=== PATIENT | male | born 1935 | race Caucasian/White ===

== ENCOUNTER 2017-04-22 04:45 | Inpatient (IN) | payer OTHER ==
--- NOTE | ~2017-04-22 | HP ---
History And Physical [address] [place]. [address] NAME: BRIAN STANTON : 37 STATUS : ADM IN [facility] WITH [facility]#: [id number] AGE: 81 ADM/REG DATE : 04/22/17 MR#: [id number] REPORT SERV DATE: 04/22/17 DICTATED BY: MAURA BECKHAM DATE: 04/22/17 REPORT STATUS : Draft TRANSCRIBED BY: MODL DATE: 04/22/17 DATE OF ADMISSION: 04/22/2017 CHIEF COMPLAINT: An 81-year-old male presenting with bright red blood per rectum. HISTORY OF PRESENTING ILLNESS: The patient's history was obtained through careful interview with the patient, coupled with review of [facility] and [employer] [facility] medical records. The patient on the afternoon of admission began to have bright red blood per rectum, passing clots, and had a total of four large bloody bowel movements this afternoon. He felt extremely weak. He describes lower quadrant abdominal discomfort, mid abdominal "discomfort", cramping quality, 3 to 4/10 severity. No lightheadedness. No nausea, vomiting. No shortness of breath. No chest pain today. The patient does have occasional chronic angina, chest pain brought on by exertion. REVIEW OF SYSTEMS: Otherwise, a 14-point review of systems was obtained and was negative. PAST MEDICAL HISTORY: 1. Diverticulitis. 2. Nephrolithiasis. 3. GI bleed. 4. Coronary artery disease, status post stent placement under the care of Dr. Gutierres, 10/2015. 5. Hypertension. 6. Cholelithiasis. PAST SURGICAL HISTORY: Multiple lipomas of the shoulder and back. ALLERGIES: IV CONTRAST. SOCIAL HISTORY: The patient quit tobacco. No alcohol abuse. He is . in poor health, on dialysis. He has two children, one child in [place], one in [place]. 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 FAMILY HISTORY: Mother with CABG. CURRENT MEDICATIONS: Include Brilinta 90 mg p.o. b.i.d., omega-3 fatty acids, aspirin 81 mg daily, Lipitor 80 mg daily, Coreg 6.25 mg p.o. b.i.d., vitamin B12, isosorbide mononitrate 30 mg daily, Cozaar 100 mg p.o. daily. PHYSICAL EXAMINATION: History And Physical [address] [address] NAME: BRIAN STANTON : 37 STATUS : ADM IN [facility]ED WITH [facility]#: [id number] AGE: 81 ADM/REG DATE : 04/22/17 MR#: [id number] REPORT SERV DATE: 04/22/17 DICTATED BY: MAURA BECKHAM DATE: 04/22/17 REPORT STATUS : Draft TRANSCRIBED BY: MODL DATE: 04/22/17 VITAL SIGNS: Temperature 98.1, pulse 96, blood pressure 120/76, respiratory rate 20, O2 saturation 97% on room air. GENERAL: A pleasant, cooperative male. No evidence of acute distress. HEENT: Pupils equal, round, and reactive to light. The patient does seem to have conjunctival pallor, but no scleral icterus. Nares are patent. Oropharynx is clear of obstruction. No intraoral lesions. Moist mucous membranes. NECK: Trachea midline. No thyromegaly. LYMPH: No cervical lymphadenopathy. No supraclavicular lymphadenopathy. RESPIRATORY: Clear to auscultation at bases. No wheezes, rales, or rhonchi. Normal respiratory effort. CARDIOVASCULAR: Regular rate and rhythm. No murmurs, rubs, or gallops. No extremity edema is appreciated. ABDOMEN: Soft, nontender, nondistended. Normal bowel sounds auscultated throughout. No hepatosplenomegaly. DERMATOLOGICAL: Warm and dry. EXTREMITIES: Peripheral pallor. No cyanosis. PSYCHIATRIC: Normal affect. Good mood. Alert and oriented x3. LABORATORY DATA: White blood cell count 10.8, hemoglobin 11, hematocrit 34, platelets 228. Sodium 142, potassium 4.4, chloride 109, bicarb 26, BUN 26, creatinine 1.1, glucose 178, MCV 100.9. Troponin negative. ASSESSMENT AND PLAN: 1. Lower gastrointestinal bleed. 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 2. Coronary artery disease with chronic stable angina. Last stent was placed in 10/2015. Holding Brilinta and aspirin secondary to bleeding. 3. Macrocytic anemia and check studies. KPL/MODL Maura Beckham M.D. / [id number] CC: MD Santos Logn M.D.
--- NOTE | ~2017-04-22 | DS ---
Discharge Summary [facility] [address] [place]. [address] NAME: BRIAN STANTON : 37 STATUS : ADM IN [facility]#: [id number] AGE: 81 ADM/REG DATE : 04/22/17 MR#: [id number] REPORT SERV DATE: 04/23/17 DICTATED BY: WHIT NO DATE: 04/23/17 REPORT STATUS : Draft TRANSCRIBED BY: MODL DATE: 04/23/17 ADMISSION DATE: 04/22/2017 DISCHARGE DATE: 04/23/2017 FINAL HOSPITAL DIAGNOSES: 1. GI bleed resolved. 2. History of coronary disease, status post stent placement. 3. Hypertension. CONSULTATIONS: To GI. PROCEDURES: GI bleeding scan done on 04/22/2017, showing no evidence of acute GI bleed at this time. CURRENT PHYSICAL FINDINGS AND HISTORY OF PRESENT ILLNESS: Please see initial dictated H and P by Dr. Ureña. In brief, the patient is an 81-year-old male with above medical history who presented on the evening of 04/22/2017, with complaint of three episodes of bright red blood per rectum. Had a remote history of GI bleed in the past. Associated symptoms were some dizzy, weakness, no syncope, no chest pain. PHYSICAL EXAMINATION: VITAL SIGNS: Vital signs at time of admission noted a BP 120/76, he has been afebrile through his hospital stay. Average heart rate has been 70s to 90s. LAB WORK: BMP was unremarkable. Ferritin was 16. Troponin was negative x2. Initial hemoglobin was 11. Subsequent hemoglobins were 9.4 x2 on 04/22/2017, 8.7 and 9.6 on 04/23/2017. HOSPITAL COURSE: The patient was admitted with complaint of GI bleed. His aspirin and Plavix were held. IV fluids were given. Home blood pressure medicines were adjusted appropriately. The patient declined colonoscopy. GI recommended bleeding scan with negative results as noted above. Although the patient had several bowel movements with blood prior to admission, he has had no further bowel movements for the past 24 hours. The patient has been ambulatory without any difficulties or otherwise complaints. GI has seen the patient and agreed with discharge. The patient is very determined to discharge today. He adamantly declines a colonoscopy, mostly on the standpoint he would prefer not to have one and his bleeding has stopped. He is very insistent on discharge today as his is a dialysis patient and he needs to be home to care for and transport her to dialysis. He is as mentioned again asymptomatic. Bleeding has stopped. This seems reasonable. DISPOSITION: He will be discharge home. MEDICATIONS: Lipitor 80, Coreg 6.25 b.i.d., vitamin B12 1000, vitamin D 2000, Imdur 60, Cozaar 50, fish oil 1000, nitroglycerin 0.4, Detrol 2 mg b.i.d. He will hold his aspirin and Plavix for seven days prior, restarted per GI's recommendation. Discharge Summary [place] [id number] [facility] [place]. [address] NAME: BRIAN STANTON : 37 STATUS : ADM IN [facility]#: [id number] AGE: 81 ADM/REG DATE : 04/22/17 MR#: [id number] REPORT SERV DATE: 04/23/17 DICTATED BY: WHIT NO DATE: 04/23/17 REPORT STATUS : Draft TRANSCRIBED BY: LIUDMILA DATE: 04/23/17 His stent was over a year ago and the patient is comfortable with that recommendation, understanding risks and benefits. Post hospital followup with his PCP will be arranged. Return for any bleeding. DICTATED BY: Denis Mora/LIUDMILA Whit No M.D. / [id number] CC: Denis Mora M.D.
--- NOTE | ~2017-04-22 | DS ---
Discharge Summary [place] [id number] [facility] [place]. [address] NAME: BRIAN STANTON : 37 STATUS : ADM IN PAT#: [id number] AGE: 81 ADM/REG DATE : 04/22/17 MR#: [id number] REPORT SERV DATE: 04/23/17 DICTATED BY: WHIT NO DATE: 04/23/17 REPORT STATUS : Draft TRANSCRIBED BY: MODL DATE: 04/23/17 ADMISSION DATE: 04/22/2017 DISCHARGE DATE: ADDENDUM: Rechecked blood pressure, the patient was approximately 90/60. The patient is asymptomatic and is still requesting discharge. We discussed his medications. He is going to hold his Cozaar and Detrol at the current time. He is going to restart either at his 7- to 10-day followup with his PCP or if his systolics climb above 110 on his home blood pressure cuff. Should his blood pressures remain low or he become more symptomatic, he will schedule a sooner appointment with his PCP and hold his Imdur. He will return for any bleeding. He will take his aspirin, but hold his Plavix per GI recommendations for the next week. He voiced understanding of these instructions and again is still requesting to discharge. DICTATED BY: Whit No M.D. TLF/LIUDMILA Whit No M.D. / [id number] CC: Denis Mora M.D.
--- NOTE | ~2017-04-22 | CN ---
Consultation Report [facility] [address] [place]. [address] NAME: BRIAN STANTON : 37 STATUS : DIS IN PAT#: [id number] AGE: 81 ADM/REG DATE : 04/22/17 MR#: [id number] REPORT SERV DATE: 04/27/17 DICTATED BY: SHIRAZ PANDEY DATE: 04/26/17 REPORT STATUS : Draft TRANSCRIBED BY: MODL DATE: 04/26/17 CONSULTATION DATE OF CONSULTATION: 04/22/2017 DICTATED BY: Asia Flores, Nurse Practitioner dictating for Dr. Shiraz Pandey. REASON FOR CONSULTATION: Lower GI bleed. HISTORY OF PRESENT ILLNESS: This 81-year-old white male was last seen February 2008, for screening colonoscopy remarkable for internal hemorrhoids, left-sided diverticulosis, large lipoma in the ascending colon, and removal of benign polyp. The patient presents with complaints of bright red blood per rectum following eating a hot dog and pickle relish that began yesterday. He reports he took Levaquin and Flagyl in November of this year for diverticulitis with resolution of symptoms. He reports a history of similar bleeding in the past. He has a history of [place] October 2015, status post stent placement x2 and on Plavix and low-dose aspirin. He had some abdominal cramping initially prior to bleeding. He denies any nausea, vomiting, fever, or chills. He had a BM this morning that was brown and formed with only scant blood noted. PAST MEDICAL HISTORY: 1. History of GI bleed. 2. Diverticulitis. 3. Nephrolithiasis. 4. CAD status post stents x2, October 2015. 5. Hypertension. 6. Cholelithiasis. PAST SURGICAL HISTORY: 1. Tonsillectomy. 2. Excision of lipomas from the back and chest. 3. Cardiac stents x2. ALLERGIES: IV CONTRAST. HOME MEDICATIONS: Include aspirin 81 mg daily, Lipitor, Coreg, vitamin D, Plavix 75 mg daily, vitamin B12 sublingual, Imdur, Cozaar, Citrucel, fish oil, and Nitrostat. SOCIAL HISTORY: The patient is . His is on dialysis and disabled. 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 He denies alcohol use, and was a former smoker, but no longer smokes tobacco. FAMILY HISTORY: Mother, coronary artery disease. No GI malignancies. Consultation Report [facility] [address] [place]. [address] NAME: BRIAN STANTON : 37 STATUS : DIS IN PAT#: [id number] AGE: 81 ADM/REG DATE : 04/22/17 MR#: [id number] REPORT SERV DATE: 04/27/17 DICTATED BY: SHIRAZ PANDEY DATE: 04/26/17 REPORT STATUS : Draft TRANSCRIBED BY: MODL DATE: 04/26/17 REVIEW OF SYSTEMS: Otherwise unremarkable for constitutional, endocrine, neurologic, psychiatric, ocular, ENT, pulmonary, cardiovascular, GI, , or rheumatologic symptoms except for as noted above. PHYSICAL EXAMINATION: VITAL SIGNS: Temp 98.1, pulse 96, respirations 20, BP 120/76. GENERAL: Alert and oriented x3. No acute distress. HEENT: Grossly within normal limits. CHEST: Clear to auscultation bilaterally. CARDIOVASCULAR: Regular rate and rhythm without murmur noted. ABDOMEN: Soft, nondistended, nontender, active bowel sounds, no masses or hepatosplenomegaly noted. EXTREMITIES: Without edema. LABORATORY DATA: WBC 10.8, hemoglobin 11.0 down from 12.7 in November 2015, INR 1.2, potassium 4.4, BUN mildly elevated at 26, creatinine normal at 1.11, glucose 178 and high, magnesium normal at 1.7, troponin negative. IMPRESSION: 1. Lower gastrointestinal bleed most consistent with diverticular bleed; in the setting of aspirin and Plavix, it appears to be resolving. 2. Anemia with hemoglobin of 11.0. PLAN: The patient is refusing colonoscopy. We will send for nuclear medicine bleeding scan to evaluate for any active bleeding. /MODL Shiraz Pandey M.D. / [id number] CC: Denis Mora M.D. Robert Berglund, M.D.
[2017-04-22 03:45] LABS: BASOPHILS 0.2 %; BASOPHILS ABSOLUTE 0.02 10/3/uL (0.0-0.16); EOSINOPHILS 1.9 %; EOSINOPHILS ABSOLUTE 0.21 10/3/uL (0.0-0.53); ER CBC TAT 0 Hrs 00 Mins; IMMATURE GRANULOCYTES 0.2 %; IMMATURE GRANULOCYTES ABSOLUTE 0.02 10/3/uL (0.0-0.11); LYMPHOCYTES 15.8 %; LYMPHOCYTES ABSOLUTE 1.71 10/3/uL (0.67-4.30); MEAN CORPUS HGB CONC 32.6 g/dL (32.0-36.0); MEAN CORPUSCULAR HEMOGLOB 32.9 pg (26.0-34.0); MEAN CORPUSCULAR VOLUME 100.9 fL (80-100); MEAN PLATELET VOLUME 10.4 fL (9.2-13.0); MONOCYTES 4.7 %; MONOCYTES ABSOLUTE 0.51 10/3/uL (0.21-1.20); NEUTROPHILS 77.2 %; NEUTROPHILS ABSOLUTE 8.32 10/3/uL (2.02-8.40); NUCLEATED RED BLOOD CELLS 0.3 /100WBC (0-0); PLATELET COUNT 228 10/3/uL (150-400); RBC DISTRIBUTION WIDTH 13.4 % (12.0-16.0); RED CELL COUNT 3.34 10/6/uL (4.7-6.1); WHITE BLOOD CELLS 10.8 10/3/uL (4.5-10.5)
[2017-04-22 03:50] LABS: HEMATOCRIT 33.7 % (40.0-51.0); MANUAL DIFF NO %
[2017-04-22 03:58] LABS: INTERNATIONAL NORMAL RATI 1.2 UNITS (-); PARTIAL THROMBO TIME 30.3 SEC (22.5-37.2)
[2017-04-22 04:08] LABS: CALCIUM, SERUM 8.8 MG/DL (8.5-10.4); CHEST PAIN PROFILE TAT 0 Hrs 00 Mins; CHLORIDE, SERUM 109 MMOL/L (96-112); CO2 (CARBON DIOXIDE) 26 MMOL/L (24-34); CREATININE 1.11 MG/DL (0.70-1.30); GFR AFRICAN AMERICAN 72 ML/MIN (>=60); GFR NON AFRICAN AMERICAN 62 ML/MIN (>=60); POTASSIUM, SERUM 4.4 MMOL/L (3.5-5.3); SODIUM, SERUM 142 MMOL/L (135-148); TROPONIN I <0.02 NG/ML (<0.05)
[2017-04-22 04:10] LABS: BUN (BLOOD UREA NITROGEN) 26 MG/DL (6-23); GLUCOSE, SERUM 178 MG/DL (60-99)
[~2017-04-22 04:45] MED LIST: ASAB PO; BRILINTA90 MG PO; CITRUCELSF; COREG3 PO; COREG6 PO; COZ50 PO; COZAAR100 MG PO; FISH-EPA1000 MG PO; FLAGYL250 MG PO; IMDUR30 PO; LEVAQUIN5T PO; LIPITOR80 MG PO; NITROSTAT0.4 MG SL; PLAVIX PO; VITAMIN B-121000 MC1 SL; VITAMIN D2000 UNIT PO
[2017-04-22 15:02] LABS: BASOPHILS 0.2 %; BASOPHILS ABSOLUTE 0.02 10/3/uL (0.0-0.16); EOSINOPHILS 2.3 %; EOSINOPHILS ABSOLUTE 0.21 10/3/uL (0.0-0.53); HEMATOCRIT 28.3 % (40.0-51.0); HEMOGLOBIN 9.4 g/dL (13.6-17.8); IMMATURE GRANULOCYTES 0.3 %; IMMATURE GRANULOCYTES ABSOLUTE 0.03 10/3/uL (0.0-0.11); LYMPHOCYTES ABSOLUTE 2.46 10/3/uL (0.67-4.30); MANUAL DIFF NO %; MEAN CORPUS HGB CONC 33.2 g/dL (32.0-36.0); MEAN CORPUSCULAR HEMOGLOB 34.1 pg (26.0-34.0); MEAN CORPUSCULAR VOLUME 102.5 fL (80-100); MEAN PLATELET VOLUME 10.1 fL (9.2-13.0); MONOCYTES 6.9 %; MONOCYTES ABSOLUTE 0.63 10/3/uL (0.21-1.20); NEUTROPHILS 63.3 %; NEUTROPHILS ABSOLUTE 5.77 10/3/uL (2.02-8.40); PLATELET COUNT 194 10/3/uL (150-400); RBC DISTRIBUTION WIDTH 13.6 % (12.0-16.0); RED CELL COUNT 2.76 10/6/uL (4.7-6.1); WHITE BLOOD CELLS 9.1 10/3/uL (4.5-10.5)
[2017-04-22 15:50] LABS: FERRITIN 16 NG/ML (26-388); FOLATE 30.5 NG/ML (>5.2); IRON BINDING CAPACITY 303 MCG/DL (250-450); IRON, SERUM 55 MCG/DL (35-150); PHOSPHORUS, SERUM 1.9 MG/DL (2.5-4.5); TROPONIN I <0.02 NG/ML (<0.05)
[2017-04-22] MEDS ORDERED: ASAB PO (17:34)
[2017-04-22] MEDS ORDERED: LIPITOR80 MG PO (17:34)
[2017-04-22] MEDS ORDERED: COREG6 PO (17:35)
[2017-04-22] MEDS ORDERED: COZ50 PO (17:35)
[2017-04-22] MEDS ORDERED: PLAVIX PO (17:35)
[2017-04-22] MEDS ORDERED: VITAMIN D2000 UNIT PO (17:35)
[2017-04-22] MEDS ORDERED: NITROSTAT0.4 MG SL (17:35)
[2017-04-22] MEDS ORDERED: IMDUR60 PO (17:35)
[2017-04-22] MEDS ORDERED: FISH-EPA1000 MG PO (17:36)
[2017-04-22] MEDS ORDERED: DETROL2 PO (17:36)
[2017-04-22] MEDS ORDERED: VITAMIN B-121000 MC1 SL (17:37)
[2017-04-22 21:27] LABS: HEMOGLOBIN 9.4 g/dL (13.6-17.8)
[2017-04-23 05:07] LABS: BASOPHILS 0.2 %; BASOPHILS ABSOLUTE 0.02 10/3/uL (0.0-0.16); EOSINOPHILS 3.4 %; EOSINOPHILS ABSOLUTE 0.28 10/3/uL (0.0-0.53); HEMATOCRIT 26.2 % (40.0-51.0); HEMOGLOBIN 8.7 g/dL (13.6-17.8); IMMATURE GRANULOCYTES 0.2 %; IMMATURE GRANULOCYTES ABSOLUTE 0.02 10/3/uL (0.0-0.11); LYMPHOCYTES 30.5 %; LYMPHOCYTES ABSOLUTE 2.51 10/3/uL (0.67-4.30); MEAN CORPUS HGB CONC 33.2 g/dL (32.0-36.0); MEAN CORPUSCULAR HEMOGLOB 33.6 pg (26.0-34.0); MEAN CORPUSCULAR VOLUME 101.2 fL (80-100); MEAN PLATELET VOLUME 9.7 fL (9.2-13.0); MONOCYTES ABSOLUTE 0.82 10/3/uL (0.21-1.20); NEUTROPHILS 55.7 %; NEUTROPHILS ABSOLUTE 4.57 10/3/uL (2.02-8.40); PLATELET COUNT 186 10/3/uL (150-400); RBC DISTRIBUTION WIDTH 13.6 % (12.0-16.0); RED CELL COUNT 2.59 10/6/uL (4.7-6.1); WHITE BLOOD CELLS 8.2 10/3/uL (4.5-10.5)
[2017-04-23 05:08] LABS: MANUAL DIFF NO %
[2017-04-23 05:28] LABS: CALCIUM, SERUM 8.5 MG/DL (8.5-10.4); CHLORIDE, SERUM 110 MMOL/L (96-112); CO2 (CARBON DIOXIDE) 27 MMOL/L (24-34); CREATININE 0.81 MG/DL (0.70-1.30); GFR AFRICAN AMERICAN 97 ML/MIN (>=60); GFR NON AFRICAN AMERICAN 84 ML/MIN (>=60); POTASSIUM, SERUM 4.5 MMOL/L (3.5-5.3); SGOT(AST) 17 U/L (5-40); SGPT(ALT) 19 U/L (5-65); SODIUM, SERUM 143 MMOL/L (135-148); TOTAL BILIRUBIN 0.5 MG/DL (0-1.2)
[2017-04-23 05:37] LABS: A/G RATIO 0.9 (0.7-1.9); ALBUMIN 2.4 G/DL (3.5-5.0); ALKALINE PHOSPHATASE 60 U/L (45-117); BUN (BLOOD UREA NITROGEN) 16 MG/DL (6-23); GLOBULIN 2.6 G/DL (2.5-4.1); GLUCOSE, SERUM 118 MG/DL (60-99); PHOSPHORUS, SERUM 2.9 MG/DL (2.5-4.5)
[2017-04-23 13:20] LABS: HEMOGLOBIN 9.6 g/dL (13.6-17.8)
== END 2017-04-23 16:54 | disposition home or self-care (01) | DRG 378 ==
LOC: ER 04:45 → 5NO 04:48
PROVIDERS: Emergency Medicine; Hospitalist; Internal Medicine
DX: K92.2 Gastrointestinal hemorrhage, unspecified (principal); D62 Acute posthemorrhagic anemia; I10 Essential (primary) hypertension; I25.10 Atherosclerotic heart disease of native coronary artery without angina pectoris; Z95.5 Presence of coronary angioplasty implant and graft; Z79.82 Long term (current) use of aspirin
CPT/HCPCS: 36415; 36430; 78278; 80048; 80053; 82607; 82728; 82746; 83540; 83550; 83735; 84100; 84443; 84484; 85014; 85018; 85025; 85610; 85730; 86850; 86900; 86901; 86920; 93005; 99285; A9270-GY; A9560